=== PATIENT | female | born 1955 | race Caucasian/White ===

== ENCOUNTER → 2017-08-07 | Outpatient (CLI) | payer BC ==
[~2017-08-07] MED LIST: THYROID MED
[2017-08-09 14:31] LABS: Stool Occult Bld Immuno 1 Negative (NEGATIVE); Stool Occult Bld Immuno 2 Negative (NEGATIVE)
== END | disposition home or self-care (01) ==
LOC: LAB EV 08:55 → LAB SHORT 08:55
PROVIDERS: Internal Medicine Gastroenterology
DX: Z12.11 Encounter for screening for malignant neoplasm of colon (principal)
CPT/HCPCS: G0328

== ENCOUNTER → 2019-05-12 | Outpatient (CLI) | payer OTHER ==
[2019-05-14 15:07] LABS: HPV 16 Negative (Negative); HPV 18 Negative (Negative); HPV OTHER HR TYPES Negative (Negative)
== END | disposition home or self-care (01) ==
LOC: LAB 15:29 → LAB SHORT 15:29
PROVIDERS: Obstetrics & Gynecology
DX: Z12.4 Encounter for screening for malignant neoplasm of cervix (principal)
CPT/HCPCS: 87624; G0123

== ENCOUNTER 2022-12-03 07:12 | Day surgery (SDC) | payer MEDICARE ==
[~2022-12-03] VITALS: Ht 172.7 cm; Wt 73.9 kg
[2022-12-03] MEDS ORDERED: LIOT5 (07:54)
[2022-12-03] MEDS ORDERED: Pravastatin Sod40 MG (07:54)
[2022-12-03] MEDS ORDERED: MOTION RELIEF25 MG (07:54)
[2022-12-03] MEDS ORDERED: LEVSOD75 (07:54)
--- NOTE | 2022-12-03 09:53 | NUR ---
12/03/22 0953 VARINDER MONTOYA STUDENT NURSE, POLI CEDEÑO ASSISTING WITH CARE
[2022-12-03 10:02] VITALS: BP 139/82
== END 2022-12-03 09:55 | disposition home or self-care (01) ==
LOC: ORSCSDS 07:12
PROVIDERS: Internal Medicine Gastroenterology
PROC: 0DBL8ZX Excision of Transverse Colon, Via Natural or Artificial Opening Endoscopic, Diagnostic (ICD-10-PCS; principal; 2022-12-03 09:00)
DX: Z12.11 Encounter for screening for malignant neoplasm of colon (principal); D12.3 Benign neoplasm of transverse colon; K57.30 Diverticulosis of large intestine without perforation or abscess without bleeding; E78.5 Hyperlipidemia, unspecified; E03.9 Hypothyroidism, unspecified; Z79.899 Other long term (current) drug therapy
CPT/HCPCS: 88305; J2704; J7120